=== PATIENT | female | born 1990 | race Hispanic/Latino ===

== ENCOUNTER 2022-05-12 10:30 | Emergency (ER) | payer OTHER ==
[2022-05-12] MEDS ORDERED: Ibuprofen 800 MG TAB ONE (12:11)
[2022-05-12] MEDS ORDERED: predniSONE 20 MG TAB ONE ×2 (12:11→12:13)
== END 2022-05-12 13:11 | disposition home or self-care (01) ==
LOC: ERS 10:30
DX: U07.1 COVID-19 (principal); J01.90 Acute sinusitis, unspecified; B96.89 Other specified bacterial agents as the cause of diseases classified elsewhere; J11.1 Influenza due to unidentified influenza virus with other respiratory manifestations; J44.9 Chronic obstructive pulmonary disease, unspecified; Z87.891 Personal history of nicotine dependence
CPT/HCPCS: 87081; 87430; 87804; 99284; J7512; U0003; U0005

== ENCOUNTER 2022-05-25 21:28 | Emergency (ER) | payer OTHER ==
[2022-05-25] MEDS ORDERED: Acetaminophen 500 MG TAB ONE (22:11)
== END 2022-05-25 22:41 | disposition home or self-care (01) ==
LOC: ERS 21:28
DX: R60.9 Edema, unspecified (principal); F17.210 Nicotine dependence, cigarettes, uncomplicated
CPT/HCPCS: 99284